=== PATIENT | female | born 1960 | race Caucasian/White ===

== ENCOUNTER 2019-07-04 19:34 | Emergency (ER) | payer OTHER ==
[~2019-07-04] VITALS: Ht 149.9 cm; Wt 49.0 kg
[2019-07-04 20:47] VITALS: BP 170/74
--- NOTE | 2019-07-04 20:50 | NUR ---
to lobby a/w bed ambulatory
[2019-07-04] MEDS ORDERED: DICYCLOMINE HCL LIQUID 20 MG, ALUMINUM HYD/MAG/SIMETHICONE 30 ML, LIDOCAINE VISCOUS 2% ... PO ONE ×3 (22:05)
--- NOTE | 2019-07-04 22:05 | NUR ---
58 Y/O FEMALE C/O SUDDEN ONSET ABD PAIN S/P EATING ENCHILADAS FOR DINNER. ABD SOFT, ROUND, NONTENDER TO PALP. BOWEL SOUNDS PRESENT X 4 QUAD. 8/10 ACHING PAIN TO ABD. STATES NAUSEA. DENIES VOMITING/DIARRHEA. RR EVEN AND UNLABORED, PT LAYING FLAT IN BED POSITIONED FOR COMFORT. AT BEDSIDE. VSS. MEDHX: DENIES ALLERGIES: NKA
[2019-07-04] MEDS ORDERED: ALUMINUM HYD/MAG/SIMETHICONE 30 ML UDC ONE (22:07)
[2019-07-04] MEDS ORDERED: DICYCLOMINE HCL LIQUID 10 MG/5 ML UDC ONE (22:07)
[2019-07-04] MEDS ORDERED: LIDOCAINE VISCOUS 2% 20 ML UDC ONE (22:07)
[2019-07-04] MEDS ORDERED: NACL 0.9% 1,000 ML IV ONE (22:36)
--- NOTE | 2019-07-04 22:38 | NUR ---
PT STATES NO CHANGE IN PAIN, DR EDMOND MADE AWARE
[2019-07-04 22:40] LABS: APPEARANCE,URINE CLEAR (CLEAR); BILIRUBIN,URINE NEGATIVE (NEGATIVE); BLOOD, URINE NEGATIVE (NEGATIVE); COLOR,URINE YELLOW (YELLOW); LEUKOCYTE ESTERASE ,URINE NEGATIVE (NEGATIVE); NITRITE, URINE NEGATIVE (NEGATIVE); UGLUCOSE NEGATIVE (NEGATIVE)
[2019-07-04] MEDS ORDERED: MORPHINE SULFATE 4 MG/ML SYR IVP ONE (22:40)
[2019-07-04] MEDS ORDERED: ONDANSETRON 4 MG/2 ML VIAL IVP ONE (22:40)
--- NOTE | 2019-07-04 22:58 | NUR ---
LAB AT BEDSIDE
[2019-07-04 23:04] LABS: BASOPHILS % (AUTO) 0.3 % (0.0-2.0); EOSINOPHILS % (AUTO) 0.2 % (0.0-4.0); HEMATOCRIT 34.5 % (36-48); HEMOGLOBIN 11.5 g/dL (12.0-16.0); LYMPHOCYTES # (AUTO) 1.2 K/uL (2.5-16.5); MEAN CORPUSCULAR HEMOGLOBIN 30 pg (27-31); MEAN CORPUSCULAR HGB CONC 33 g/dL (33-37); MEAN CORPUSCULAR VOLUME 91.6 fL (80-94); MONOCYTES # (AUTO) 0.3 K/uL (0.8-1.0); NEUTROPHILS # (AUTO) 14.6 K/uL (1.8-7.7); NEUTROPHILS % (AUTO) 90.1 % (42.2-75.2); PLATELET COUNT (AUTO) 240 K/uL (140-450); RED BLOOD CELL COUNT(AUTO) 3.77 MIL/uL (4.20-5.40); RED CELL DISTRIBUTION WIDTH 12.9 % (11.6-13.7)
--- NOTE | 2019-07-04 23:20 | NUR ---
PT STATES DECREASE IN PAIN AFTER MEDICATION. 08/01 AT THIS TIME. WILL CONTINUE TO MONITOR
[2019-07-04 23:24] LABS: LYMPHOCYTES % (AUTO) 7.4 % (20.5-51.1); WHITE BLOOD COUNT (AUTO) 16.2 K/uL (4.8-10.8)
[2019-07-04 23:25] LABS: ALBUMIN 3.7 g/dL (3.4-5.0); ANION GAP 12.8 (8-16); CARBON DIOXIDE 27.3 mmol/L (21-32); CREATININE 0.5 mg/dL (0.6-1.3); POTASSIUM 4.1 mmol/L (3.5-5.1); TOTAL BILIRUBIN 0.2 mg/dL (0.0-1.0)
--- NOTE | 2019-07-05 00:25 | NUR ---
PT TO CT VIA WHEELCHAIR
--- NOTE | 2019-07-05 00:51 | NUR ---
RESTING IN BED EYES CLOSED, VISIBLE RISE AND FALL OF THE CHEST. BED LOCKED AND IN LOW POSITION. VSS. REMAINS AT BEDSIDE. WILL CONTINUE TO MONITOR.
[2019-07-05] MEDS ORDERED: KETOROLAC 30 MG/ML VIAL IVP ONE (01:55)
[2019-07-05] MEDS ORDERED: PIPERACILLIN/TAZOBACTAM 3.375 GM in DEXTROSE 5% 50 ML IV ONE (02:15)
[2019-07-05] MEDS ORDERED: metroNIDAZOLE 500 MG/NS PREMIX 100 ML IV ONE (02:15)
[2019-07-05] MEDS ORDERED: NACL 0.9% 1,000 ML IV ONE (02:15)
[2019-07-05] MEDS ORDERED: PIPERACILLIN/TAZOBACTAM 3.375 GM VIAL IV ONE (02:17)
--- NOTE | 2019-07-05 02:44 | NUR ---
SITTING IN SEMI FOWLERS POSITION, IV INTACT, SKIN WARM AND DRY TO THE TOUCH, VSS. WILL CONTINUE TO MONITOR.
--- NOTE | 2019-07-05 02:51 | NUR ---
STATES 1/10 PAIN AT THIS TIME
--- NOTE | 2019-07-05 04:04 | NUR ---
IV SITE INTACT, SKIN WARM AND DRY TO THE TOUCH. PT SITTING IN BED ON CELLPHONE CALM AND PLEASANT. SON AT BEDSIDE. VSS. WILL CONTINUE TO MONITOR
--- NOTE | 2019-07-05 04:43 | NUR ---
REPORT GIVEN TO VERÓNICA MATHIAS AT [facility].
--- NOTE | 2019-07-05 04:58 | NUR ---
PT AMBULATED TO RESTROOM WITH STEADY GAIT
[2019-07-05 05:13] VITALS: BP 129/88
--- NOTE | 2019-07-05 05:13 | NUR ---
[facility] AT BEDSIDE TO TRANSFER PT TO [facility].
--- NOTE | 2019-07-05 05:14 | NUR ---
Patient to be transferred to [facility]. Is being transferred due to HIGHER LEVEL OF CARE. Receiving facility has accepting physician and available space. ER physician has signed transfer form. Patient or responsible democrat has agreed to transfer and signed form. Patient belongings inventoried and will be sent with patient. Copy of nursing notes, lab reports, EKG, Physicians Orders and X-rays to be sent with patient. Report called to VERÓNICA MATHIAS at receiving facility. [facility] ambulance service has been called for transfer. ETA is 15.
== END 2019-07-05 05:13 | disposition short-term general hospital (02) ==
LOC: MED 19:34
DX: K35.80 Unspecified acute appendicitis (principal)
CPT/HCPCS: 36415; 74176; 80053; 81003; 83605; 83690; 85025; 87040; 96365; 96367; 96375; 99285; J1885; J2270; J2405; J2543; J3490; J7030